=== PATIENT | male | born 1985 | race Caucasian/White ===

== ENCOUNTER 2022-01-29 15:51 | Outpatient (RCR) | payer OTHER | END 2022-02-01 | disposition home or self-care (01) | LOC: WSOT | DX: M79.641 Pain in right hand (principal) ==

== ENCOUNTER 2022-02-11 11:27 | Outpatient (RCR) | payer OTHER | END 2022-03-04 | LOC: WSOT | DX: M79.641 Pain in right hand (principal) ==